=== PATIENT | male | born 1940 | race Caucasian/White ===

== ENCOUNTER → 2019-02-08 15:01 | Outpatient (CLI) | payer OTHER, SELFPAY ==
--- NOTE | 2019-02-08 15:05 | CT_ITS ---
STUDY: CT ABDOMEN WITH CONTRAST REASON FOR EXAM: Male, 78 years old. Upper abdominal pain, hiatal hernia RADIATION DOSAGE (If Supplied By Facility): CTDIvol = ( 15.22 ) mGy, DLP = ( 700.29 ) mGycm TECHNIQUE: Transaxial images were obtained post I.V. administration of 100CC IV/Oral Isovue 300, and with oral contrast. Sagittal and coronal images were reconstructed. Individualized dose optimization techniques were used for this CT. COMPARISON: None. FINDINGS: The visualized lung bases are unremarkable. The visualized portions of the heart are within normal limits. Normal liver. There are surgical clips in the gallbladder fossa consistent with a prior cholecystectomy. Normal spleen. Normal pancreas. Indeterminate 2.1 x 1.8 cm right adrenal nodule. Normal right kidney. 2 cm left renal cyst. Normal visualized stomach. Normal small intestine. Colonic diverticulosis. The appendix was not imaged. Normal abdominal aorta. Normal inferior vena cava. Normal retroperitoneum. Normal abdominal wall. There are diffuse degenerative changes of the visualized lumbar spine. CT/Abdomen WITH IV Contrast IMPRESSION: No hiatal hernia is present at this time. No evidence of acute intestinal pathology or acute obstructive uropathy. Indeterminate right adrenal nodule. Consider 12 month follow-up dedicated adrenal CT or MRI. Electronically Signed: Orestes Henderson MD at 16:03 EDT Tel , Service support ,
== END ==
DX: R10.10 Upper abdominal pain, unspecified (principal)
CPT/HCPCS: 74160; Q9967